=== PATIENT | female | born 1965 | race Hispanic/Latino ===

== ENCOUNTER 2020-02-15 23:28 | Inpatient (IN) | payer SELFPAY ==
[~2020-02-15] VITALS: Ht 149.9 cm; Wt 67.6 kg
[2020-02-16 01:34] LABS: BASOPHILS % 0.3 % (0.0-1.0); HEMATOCRIT 34.2 % (34.2-44.1); HEMOGLOBIN 11.9 g/dL (12.0-16.0); LYMPHOCYTES # (AUTO) 0.8 (1.0-3.2); LYMPHOCYTES % 11.4 % (18.0-39.1); MEAN CORPUSCULAR HEMOGLOBIN 28.5 pg (28-32); MEAN CORPUSCULAR HGB CONC 34.8 g/dL (31-35); MONOCYTES # (AUTO) 0.2 (0.2-0.8); MONOCYTES % 2.6 % (4.4-11.3); NEUTROPHILS # (AUTO) 6.1 (2.1-6.9); NEUTROPHILS % 85.3 % (38.7-80.0); PLATELET COUNT 192 x10e3/uL (140-360); RED BLOOD COUNT 4.17 x10e6/uL (3.6-5.1); RED CELL DISTRIBUTION WIDTH 11.7 % (11.7-14.4)
[2020-02-16 01:50] LABS: CLARITY,URINE CLOUDY (CLEAR); COLOR,URINE YELLOW (YELLOW); KETONES,URINE 1+ (NEGATIVE); LEUKOCYTE ESTERASE ,URINE NEGATIVE (NEGATIVE); NITRITE,URINE NEGATIVE (NEGATIVE)
[2020-02-16 01:51] LABS: BILIRUBIN,URINE NEGATIVE (NEGATIVE); PROTEIN,URINE DIPSTICK 2+ (NEGATIVE); URINE UROBILINOGEN 0.2 mg/dL (0.2 - 1)
[2020-02-16 01:55] LABS: ALBUMIN 3.3 g/dL (3.5-5.0); ALBUMIN/GLOBULIN RATIO 0.6 (0.8-2.0); ANION GAP 18.1 mmol/L (8-16); CALCIUM 9.3 mg/dL (8.4-10.2); CREATININE, SERUM 1.25 mg/dL (0.57-1.11); POTASSIUM 4.1 mmol/L (3.5-5.1)
[2020-02-16] MEDS ORDERED: ONDANSETRON HCL INJ 2MG/ML 2ML 2 MG/ML VIAL IV STA (02:06)
[2020-02-16 02:08] LABS: BACTERIA,URINE MODERATE /HPF; EPITHELIAL CELLS,URINE FEW /LPF; WBC,URINE (MAN) >50 /HPF (0-5)
[2020-02-16] MEDS ORDERED: INSULIN REGULAR, HUMAN 100 UNIT/1 ML 3ML VIAL IV ONE (02:15)
[2020-02-16] MEDS ORDERED: SODIUM CHLORIDE 0.9% 1000ML 1,000 ML IV ONE (02:15)
[2020-02-16] MEDS ORDERED: INSULIN REGULAR, HUMAN 100 UNIT/1 ML 3ML VIAL SQ ONE (02:15)
--- NOTE | 2020-02-16 05:49 | Diagnostic Imaging Report ---
EXAMINATION: CHEST SINGLE (PORTABLE) INDICATION: Chest pain and shortness of breath COMPARISON: None FINDINGS: AP view TUBES and LINES: None. LUNGS: Ill-defined airspace opacities within both lungs, right greater than left. PLEURA: No pleural effusion or pneumothorax. HEART AND MEDIASTINUM: The cardiomediastinal silhouette is unremarkable. BONES AND SOFT TISSUES: No acute osseous lesion. Soft tissues are unremarkable. UPPER ABDOMEN: No free air under the diaphragm. IMPRESSION: Ill-defined pulmonary airspace disease. Consider viral pneumonia. Signed by: Tono Osorio MD on 02/16/2020 5:45 AM
[2020-02-16] MEDS ORDERED: ACETAMINOPHEN 325 MG TAB ONE (06:49)
[2020-02-16] MEDS ORDERED: ACETAMINOPHEN 325 MG TAB PO ONE ×2 (07:00→20:15)
[2020-02-16] MEDS ORDERED: ONDANSETRON HCL INJ 2MG/ML 2ML 2 MG/ML VIAL IV PRN (20:00)
[2020-02-16] MEDS ORDERED: DEXTROSE 50% SYRINGE 50 ML IV PRN (20:00)
[2020-02-16] MEDS ORDERED: ACETAMINOPHEN 325 MG TAB PO PRN (20:00)
[2020-02-16] MEDS ORDERED: ALBUTEROL SULFATE HFA 8GM INHALATION AEROSOL INH PRN (20:15)
[2020-02-16 21:00] VITALS: BP 135/79
[2020-02-16] MEDS ORDERED: INSULIN GLARGINE 100 UNITS/ML VIAL SQ SCH (21:00)
--- NOTE | 2020-02-16 21:00 | NUR ---
patient is a new admit that arrived via wheel chair. patient is awake and talking. patient has a telemetry box. patient has been helped into the bed. bed is in the lowest position and call light is within reach. will continue to monitor patient.
[2020-02-16 21:11] VITALS: BP 135/79
[2020-02-16 21:14] VITALS: BP 135/79
[2020-02-16] MEDS ORDERED: CEFTRIAXONE SOD 1 GM/NS 50 ML 50 ML IV SCH (21:30)
[2020-02-16] MEDS: INSULIN REGULAR, HUMAN 100 UNIT/1 ML 3ML VIAL SQ SCH (21:50)
[2020-02-16] MEDS ORDERED: AZITHROMYCIN 500MG/NS 250 ML 250 ML IV SCH (22:00)
[2020-02-16] MEDS: SODIUM CHLORIDE 0.9% 1000ML 1,000 ML IV SCH (22:10)
[2020-02-16] MEDS ORDERED: METFORMIN HCL500 MG PO (22:55)
[2020-02-16] MEDS ORDERED: GLIPIZIDE ER2.5 MG PO (22:56)
[2020-02-17] VITALS: BP 119/71
--- NOTE | 2020-02-17 02:27 | Consultation ---
DATE OF CONSULTATION: Pulmonary Critical Care Consultation CHIEF COMPLAINT: Fever, malaise, and cough. HISTORY OF PRESENT ILLNESS: The patient is a 54-year-old woman with diabetes. She takes metformin at home. She has been sick for about 2 weeks with fevers and diarrhea. She has noted some nausea as well. She started having cough about 3 days ago. She does not have dyspnea. She came to the emergency department today and was found to have an elevated BUN and creatinine as well as an elevated blood sugar. She also had a positive COVID test. PAST SURGICAL HISTORY: Cholecystectomy. PAST MEDICAL HISTORY: 1. Diabetes. 2. No prior history of asthma or lung disease. 3. No prior history of heart disease. SOCIAL HISTORY: The patient is not a smoker or drinker. FAMILY HISTORY: Noncontributory. REVIEW OF SYSTEMS: Fever and malaise for about 2 weeks. Headache. She notes some cough for 3 days. She has no dyspnea. She has no chest pain. She is not having any abdominal pain. She did have some diarrhea and vomiting. PHYSICAL EXAMINATION: VITAL SIGNS: The patient is afebrile, blood pressure is 121/59, saturation is 97%, and pulse is 93. HEENT: Shows no facial swelling or erythema. CARDIAC: Reveals regular rate and rhythm with normal S1 and S2. LUNGS: Auscultation of lungs reveals rhonchorous breath sounds bilaterally. There is no wheezing. ABDOMEN: Soft and nontender. There is no rebound or guarding. EXTREMITIES: Show no leg edema or calf tenderness. There is no cyanosis or clubbing. SKIN: Shows no rashes. RADIOGRAPHIC DATA: Chest x-ray shows some ill-defined airspace disease consistent with viral pneumonia. LABORATORY DATA: BUN to creatinine ratio is 28 and 1.25 and glucose is 513. The anion gap was 18. Hemoglobin A1c was 12.3. White blood cell count is 7.2, hemoglobin is 11.9, and platelet count is 192. IMPRESSION: 1. Viral pneumonia and coronavirus disease 2019 infection. 2. Acute kidney injury. 3. Diabetes, out of control. PLAN: 1. The patient should have intravenous fluids due to her dehydration for hyperglycemia and diarrhea. 2. Insulin to control blood sugars. 3. Repeat laboratory values tomorrow. 4. Zithromax and Rocephin. 5. Hold dexamethasone at this time because of her hyperglycemia. 6. Tylenol as needed. MD JASSI Bach/FLAKITA /[id number]
[2020-02-17 04:00] VITALS: BP 140/81
[2020-02-17 05:40] LABS: ANION GAP 11.8 mmol/L (8-16); BLOOD UREA NITROGEN 19 mg/dL (7-26); BUN/CREATININE RATIO 26 (6-25); CALCIUM 8.2 mg/dL (8.4-10.2); CARBON DIOXIDE 25 mmol/L (22-29); CHLORIDE 106 mmol/L (98-107); CREATININE, SERUM 0.73 mg/dL (0.57-1.11); EST GLOMERULAR FILTRATION RATE > 60 ML/MIN (60-); GLUCOSE 237 mg/dL (74-118); POTASSIUM 3.8 mmol/L (3.5-5.1); SODIUM 139 mmol/L (136-145)
[2020-02-17 05:47] LABS: BASOPHILS % 0.2 % (0.0-1.0); EOSINOPHILS % 0.3 % (0.0-6.0); HEMATOCRIT 31.6 % (34.2-44.1); HEMOGLOBIN 10.7 g/dL (12.0-16.0); LYMPHOCYTES # (AUTO) 1.7 (1.0-3.2); LYMPHOCYTES % 28.2 % (18.0-39.1); MEAN CORPUSCULAR HEMOGLOBIN 28.7 pg (28-32); MEAN CORPUSCULAR HGB CONC 33.9 g/dL (31-35); MEAN CORPUSCULAR VOLUME 84.7 fL (81-99); MONOCYTES # (AUTO) 0.3 (0.2-0.8); NEUTROPHILS % 65.5 % (38.7-80.0); PLATELET COUNT 179 x10e3/uL (140-360); RED BLOOD COUNT 3.73 x10e6/uL (3.6-5.1); RED CELL DISTRIBUTION WIDTH 11.6 % (11.7-14.4)
--- NOTE | 2020-02-17 06:51 | NUR ---
patient is resting in the bed. bed is in lowest position and call light is within reach.
[2020-02-17] MEDS: INSULIN REGULAR, HUMAN 100 UNIT/1 ML 3ML VIAL SQ SCH ×3 (07:30→16:30)
[2020-02-17] MEDS ORDERED: GUAIFENESIN/CODEINE 10 ML CUP PO PRN (08:15)
--- NOTE | 2020-02-17 08:18 | NUR ---
GAVE PACKET OF INFORMATION WITH COMMUNITY [facility] FOR ASSISTANCE WITH LOW TO NO INCOME TO PATIENT. RESOURCES THAT PATIENT MAY BE ABLE TO FOLLOW UP UPON DISCHARGE. PT EDUCATED ON EACH RESOURCE AND UNDERSTANDING HOW TO FOLLOW UP TO SEE IF QUALIFIED FOR EACH RESOURCE.
[2020-02-17 08:31] VITALS: BP 130/74
[2020-02-17 08:33] VITALS: BP 130/74
[2020-02-17] MEDS ORDERED: ZINC SULFATE 220 MG CAP PO SCH (09:00)
[2020-02-17] MEDS ORDERED: ASCORBIC ACID 500 MG TAB PO SCH (09:00)
--- NOTE | 2020-02-17 09:14 | NUR ---
Per Dr.Hamer Mckoy "patient cleared to discharge from pulmonology standpoint."
--- NOTE | 2020-02-17 09:27 | Progress Note ---
DATE: SUBJECTIVE: The patient received intravenous fluids yesterday. She feels better and her creatinine has improved. She complains of some cough as well as some tightness in the chest with coughing. She is not having fevers. PHYSICAL EXAMINATION: VITAL SIGNS: The blood pressure is 140/81, saturation is 96%, pulse is 80, and respiratory rate is 18. HEENT: Shows no facial swelling or erythema. CARDIAC: Reveals regular rate and rhythm with normal S1 and S2. LUNGS: Auscultation of lungs reveals clear breath sounds bilaterally. There is no wheezing. ABDOMEN: Soft and nontender. There is no rebound or guarding. EXTREMITIES: Shows no leg edema or calf tenderness. There is no cyanosis or clubbing. SKIN: Shows no rashes. LABORATORY DATA: White blood cell count is 6.03 and hemoglobin is 10.7, and the platelet count is 197. The BUN to creatinine ratio is 19 to 0.73, and the blood sugar is 237. IMPRESSION: 1. Viral pneumonia and COVID-19 infection. 2. Acute kidney injury. 3. Diabetes, out of control. PLAN: 1. Continue inhaler as needed. 2. Guaifenesin with codeine for cough syrup. 3. Close attention to blood sugars. The patient will need better diabetic management as an outpatient given her elevated hemoglobin A1c of 12.8. 4. Dexamethasone is not indicated in this patient because she has been sick for 2 weeks and is not requiring oxygen. Also dexamethasone would worsen her blood sugars and make her diabetes more difficult to control. 5. The patient is not a candidate for remdesivir because she has been sick for 2 weeks. 6. Tentative discharge home after discussion with Dr. Delgadillo and Dr. Kyle. Raymond Dill MD LM/MODL /[id number]
[2020-02-17] MEDS: SODIUM CHLORIDE 0.9% 1000ML 1,000 ML IV SCH (09:59)
--- NOTE | 2020-02-17 10:00 | NUR ---
aware T 101.4 on 02/16/20 0625
[2020-02-17] MEDS ORDERED: FAMOTIDINE 20 MG/2 ML VIAL IV STA (11:33)
[2020-02-17 11:34] VITALS: BP 119/74
[2020-02-17] MEDS ORDERED: PROMETHAZINE 12.5MG/ NACL 0.9% 12.5 MG/50 ML BAG IV ONE (12:30)
[2020-02-17] MEDS ORDERED: PROMETHAZINE 25MG/ NS 50ML (IV) IV SCH (13:00)
--- NOTE | 2020-02-17 13:13 | NUR ---
infectious disease consultation patient is seen and examined and chart reviewed patient who originally came because she was not feeling well she has some cough with congestion patient came he was diagnosed with [place] at 19 she is not on oxygen she is a room air she was having some cough she was given cough medication with codeine for now she is complaining of nausea and stomach upset she says she does have problem wi th codeine before other than that she says she is doing well the patient when I saw her she was having nausea. This patient who is a healthy 52-year-old female who comes in with cough in the summer chest congestion but she says she is feeling well currently laying in bed comfortably she is willing to go home if she can but the nausea is bothering her at the present time her review of the systems all total negative. Her past medical history she does have diabetes mellitus Past surgical history she denies pain Social history there is no smoking drug abuse or abuse. Family history is otherwise noncontributory The patient received intravenous fluids yesterday. She feels better and her creatinine has improved. She complains of some cough as well as some tightness in the chest with coughing. She is not having fevers. PHYSICAL EXAMINATION: VITAL SIGNS: The blood pressure is 140/81, saturation is 96%, pulse is 80, and respiratory rate is 18. HEENT: Shows no facial swelling or erythema. CARDIAC: Reveals regular rate and rhythm with normal S1 and S2. LUNGS: Auscultation of lungs reveals clear breath sounds bilaterally. There is no wheezing. ABDOMEN: Soft and nontender. There is no rebound or guarding. EXTREMITIES: Shows no leg edema or calf tenderness. There is no cyanosis or clubbing. SKIN: Shows no rashes. LABORATORY DATA: White blood cell count is 6.03 and hemoglobin is 10.7, and the platelet count is 197. The BUN to creatinine ratio is 19 to 0.73, and the blood sugar is 237. IMPRESSION: 1. Viral pneumonia and COVID-19 infection.clinically stable minimum symptoms and still he could be discharged with no treatment 2. Acute kidney injury.recommend gentle hydration 3 nausea due med codeine will DC and give her Zofran as needed and Pepcid 3. Diabetes, out of control. continues order to control PLAN: 1. Continue inhaler as needed. 2.symptomatic management discussed with the patient 3. Close attention to blood sugars. The patient will need better diabetic management as an outpatient given her elevated hemoglobin A1c of 12.8. discussed with the patient no need for antibiotics no need for steroid patient is not hypoxemic 5. The patient is not a candidate for remdesivir patient is not hypoxemic
[2020-02-17] MEDS ORDERED: ENOXAPARIN SOD INJ 40 MG/0.4 ML SYR SC ONE (13:30)
[2020-02-17 15:39] VITALS: BP 109/64
[2020-02-17] MEDS ORDERED: ONDANSETRON HCL INJ 2MG/ML 2ML 2 MG/ML VIAL IV ONE (16:15)
--- NOTE | 2020-02-17 16:57 | NUR ---
Denies nausea. Nicki Farrell NP aware
--- NOTE | 2020-02-17 17:50 | NUR ---
Left AC IV discontinued. No signs of infiltration noted. 2x2 gauze and tape placed. Taken via wheelchair to personal car. AAOX4 to time, person,place, situation. Respirations even and unlabored. Denies nausea or vomiting Discharge instructions and all personal belongings taken with patient. No rx avaible.
--- NOTE | 2020-02-17 19:25 | History and Physical ---
PRIMARY CARE PHYSICIAN: Unknown. CHIEF COMPLAINT: Generalized weakness, shortness of breath, and cough. HISTORY OF PRESENT ILLNESS: This is a 54-year-old female with past medical history of diabetes, presented to the ER with complaints of malaise, cough, fever, shortness of breath for the past 8 days as well. She reports diarrhea has improved, but continued to feel weak, and presented to the ER for further evaluation. She was COVID-19 positive. She denies any chest pain, hemoptysis, nausea, vomiting, constipation. In the ER, she was noted to have actually hyponatremia at sodium of 134, creatinine 1.25, and blood glucose of 513, and chest x-ray showed ill-defined pulmonary air space disease due to likely viral pneumonia. She is admitted for further evaluation and management. PAST MEDICAL HISTORY: Diabetes. SURGICAL HISTORY: She reports: 1. Cholecystectomy. 2. x2. FAMILY MEDICAL HISTORY: Reports mother has diabetes. Father has high blood pressure. SOCIAL HISTORY: She denies any tobacco, alcohol, or illicit drug use. ALLERGIES: NO KNOWN ALLERGIES. REVIEW OF SYSTEMS: All systems reviewed and negative except as noted in HPI. PHYSICAL EXAMINATION: VITAL SIGNS: Temperature 98.7, pulse is 85, respirations 16, blood pressure 130/75, pulse ox is 96% on room air. GENERAL: No acute distress. HEENT: Normocephalic, atraumatic. NECK: Supple. LUNGS: Decreased breath sounds. CARDIOVASCULAR: Regular rate and rhythm. GI: Soft and nontender. NEUROLOGIC: Alert, awake, and oriented x3. MUSCULOSKELETAL: Moves all extremities. SKIN: Dry. PSYCH: Calm. LABORATORY DATA: WBC 6.03, hemoglobin 10.7, hematocrit 31.6, platelets 179. Sodium 139, potassium 3.8. BUN is 19, creatinine 0.73, estimated GFR greater than 60, glucose 237, hemoglobin A1c 12.8, calcium 8.2. AST 12, ALT 8. Urine cloudy, but negative for leukocyte esterase. COVID-19 positive. Chest x-ray, ill-defined pulmonary airspace disease. Consider viral pneumonia. IMPRESSION: 1. Viral pneumonia due to coronavirus disease 2019. Shortness of breath and cough are improved. Continue on azithromycin, Rocephin, and cough medicine for cough. ID and Pulmonary consulted. 2. Diabetes type 2 with hyperglycemia. Hemoglobin A1c 12.8. She is started on Lantus 15 units at bedtime and sliding scale insulin. 3. Dehydration with hyponatremia. Continue with IV fluid hydration, likely due to viral symptoms. 4. Acute kidney injury due to dehydration. Improving with IV fluid hydration. 5. Deep venous thrombosis prophylaxis. We will give Lovenox x1. PLAN: Plan is to continue supportive care. Symptoms have improved. Decadron will not be given due to hyperglycemia. We will discharge home later today if continues to improve. Dictated by CHAYO Hester Sandraching Shun Delgadillo MD MY/MODL /[id number]
--- NOTE | 2020-02-17 22:50 | Discharge Summary ---
PCP: Unknown. FINAL DISCHARGE DIAGNOSES: 1. Acute respiratory distress due to coronavirus disease 2019 viral pneumonia. 2. Diabetes type 2, hyperglycemia. 3. Dehydration with hyponatremia. 4. Acute kidney injury due to dehydration. CONSULTANTS: 1. Dr. Kyle with Infectious Disease. 2. Dr. Dill, sand mixer operator. PROCEDURES: None. HISTORY: Per HPI. HOSPITAL COURSE: This is a 54-year-old female with past medical history of diabetes, presented to the ER with complaints of generalized weakness, cough, fever, and shortness of breath for the past week. She tested positive for COVID-19 and was started on Rocephin, azithromycin, zinc sulfate, vitamin C, guaifenesin for cough. She was monitored overnight, she remained afebrile, an O2 saturation above 90 on room air. Chest x-ray with ill-defined pulmonary airspace disease due to viral pneumonia. She is cleared for discharge on current home medications, to follow up with Infectious Disease in 2 weeks for repeat COVID test. She is feeling better and wants to go home. PHYSICAL EXAMINATION: VITAL SIGNS: Temperature 98.1, pulse is 81, respirations 17, blood pressure 109/64, pulse ox is 97% on room air. GENERAL: No acute distress. HEENT: Normocephalic. CARDIOVASCULAR: Regular rate and rhythm. LUNGS: Decreased breath sounds. GI: Soft and nontender. NEUROLOGIC: Alert, awake, and oriented x3. CONDITION AT DISCHARGE: Improved and stable. DISCHARGE MEDICATIONS: Please see medication reconciliation list. FOLLOWUP: Follow up with PCP in 1 to [address] Kyle in 2 weeks for repeat COVID test. TIME SPENT: Total discharge time is 32 minutes. Dictated by CHAYO Hester Sandraching Shun Delgadillo MD MY/MODL /[id number]
== END 2020-02-17 17:55 | disposition home or self-care (01) | DRG 177 ==
LOC: ER 02-16 03:09 → ERHOLD 02-16 20:54 → IMCU 02-16 21:03
PROVIDERS: ADMIT Internal Medicine; ATTEND Internal Medicine
DX: U07.1 COVID-19 (principal); J12.89 Other viral pneumonia; J96.00 Acute respiratory failure, unspecified whether with hypoxia or hypercapnia; N17.9 Acute kidney failure, unspecified; E87.1 Hypo-osmolality and hyponatremia; E11.65 Type 2 diabetes mellitus with hyperglycemia; E86.0 Dehydration
CPT/HCPCS: 36415; 71045; 80048; 80053; 81001; 82948; 83036; 85025; 87635; 99284; J0456; J0696; J1650; J1815; J1817; J2405; J2550; J7030

== ENCOUNTER 2020-02-22 17:17 | Emergency (ER) | payer SELFPAY ==
[~2020-02-22] VITALS: Ht 149.9 cm; Wt 67.6 kg
[~2020-02-22 17:17] MED LIST: GLIPIZIDE ER2.5 MG PO; METFORMIN HCL500 MG PO
[2020-02-22] MEDS ORDERED: ONDANSETRON HCL INJ 2MG/ML 2ML 2 MG/ML VIAL IV STA (17:54)
[2020-02-22] MEDS ORDERED: SODIUM CHLORIDE 0.9% 1000ML 1,000 ML IV STA (17:54)
[2020-02-22 18:08] LABS: BASOPHILS % 0.6 % (0.0-1.0); EOSINOPHILS # (AUTO) 0.1 (0.0-0.4); EOSINOPHILS % 2.3 % (0.0-6.0); HEMATOCRIT 35.8 % (34.2-44.1); HEMOGLOBIN 12.3 g/dL (12.0-16.0); LYMPHOCYTES # (AUTO) 1.5 (1.0-3.2); LYMPHOCYTES % 29.6 % (18.0-39.1); MEAN CORPUSCULAR HEMOGLOBIN 28.4 pg (28-32); MEAN CORPUSCULAR HGB CONC 34.4 g/dL (31-35); MEAN CORPUSCULAR VOLUME 82.7 fL (81-99); MONOCYTES # (AUTO) 0.4 (0.2-0.8); MONOCYTES % 7.8 % (4.4-11.3); NEUTROPHILS % 58.1 % (38.7-80.0); PLATELET COUNT 325 x10e3/uL (140-360); RED BLOOD COUNT 4.33 x10e6/uL (3.6-5.1); RED CELL DISTRIBUTION WIDTH 11.4 % (11.7-14.4)
[2020-02-22 18:32] LABS: ALANINE AMINOTRANSFERASE 30 IU/L (0-55); ALBUMIN 3.3 g/dL (3.5-5.0); ALBUMIN/GLOBULIN RATIO 0.7 (0.8-2.0); ALKALINE PHOSPHATASE 92 IU/L (40-150); ANION GAP 16.8 mmol/L (8-16); BLOOD UREA NITROGEN 10 mg/dL (7-26); BUN/CREATININE RATIO 12 (6-25); CALCIUM 9.4 mg/dL (8.4-10.2); CARBON DIOXIDE 25 mmol/L (22-29); CHLORIDE 103 mmol/L (98-107); CREATINE KINASE 31 IU/L (29-168); CREATININE, SERUM 0.81 mg/dL (0.57-1.11); EST GLOMERULAR FILTRATION RATE > 60 ML/MIN (60-); GLUCOSE 185 mg/dL (74-118); POTASSIUM 3.8 mmol/L (3.5-5.1); SODIUM 141 mmol/L (136-145)
--- NOTE | 2020-02-22 18:42 | Diagnostic Imaging Report ---
EXAMINATION: CHEST SINGLE (PORTABLE) INDICATION: ^Y ^COVID COMPARISON: 02/16/2020 FINDINGS: AP view TUBES and LINES: None. LUNGS: Lungs are well inflated. Improved bilateral airspace opacities. Residual bilateral lower lung field airspace opacities are seen. PLEURA: No pleural effusion or pneumothorax. HEART AND MEDIASTINUM: The cardiomediastinal silhouette is unremarkable. BONES AND SOFT TISSUES: No acute osseous lesion. Soft tissues are unremarkable. UPPER ABDOMEN: No free air under the diaphragm. IMPRESSION: Residual bilateral lower lung field airspace opacities, overall improved when compared to prior x-ray. Signed by: Dr. Ambrocio Holguin MD on 02/22/2020 6:38 PM
[2020-02-22] MEDS ORDERED: ZOFRAN4 MG SL (19:04)
--- NOTE | 2020-02-22 19:11 | Emergency Department Note ---
History of Present Illnes History of Present Illness Chief Complaint: COVID PUI History of Present Illness This is a 54 year old female arrives to the ED with complaints of nausea and vomiting ever since she contracted Covid 19. Patient denies any shortness of breath or cough and states her otherwise rest her symptoms have improved. Chief Complaint Comment Pt arrived with c/o nausea and vomiting since 02/17/20. Reports being admitted for COVID here last week. States unable to keep any food down since discharged. Pt also reports diarrhea that has not stopped. Historian: Patient Arrival Mode: Car Onset (how long ago): day(s) Onset quality: gradual Duration (how long): day(s) Timing of current episode: intermittent Progression: unchanged Chronicity: new Context: Reports recent illness Past Medical/Family History Physician Review I have reviewed the patient's past medical and family history. Any updates have been documented here. Past Medical History Recent Fever: Yes Clinical Suspicion of Infectio: Yes New/Unexplained Change in Ment: No Past Medical History: Diabetes Past Surgical History: Cholecysctectomy, Social History Physically hurt or threatened: No Other Last Tetanus: UTD Review of Systems Review of Systems Constitutional: Reports no symptoms EENTM: Reports no symptoms Cardiovascular: Reports no symptoms Respiratory: Reports no symptoms Gastrointestinal: Reports as per HPI, Reports nausea, Reports vomiting Genitourinary: Reports no symptoms Musculoskeletal: Reports no symptoms Integumentary: Reports no symptoms Neurological: Reports no symptoms Psychological: Reports no symptoms Endocrine: Reports no symptoms Hematological/Lymphatic: Reports no symptoms Physical Exam Related Data Allergies: Coded Allergies: codeine (Verified Allergy, Unknown, Abdominal pain, 02/22/20) Robutussin with Codeine guaifenesin (Verified Allergy, Unknown, Abdominal pain, 02/22/20) Robutussin with Codeine Triage Vital Signs Vital Signs Date Time Temp Pulse Resp B/P (MAP) Pulse Ox O2 Delivery O2 Flow Rate FiO2 02/22/20 17:29 100.5 90 16 155/90 97 Room Air Vital signs reviewed: Yes Physical Exam CONSTITUTIONAL Constitutional: Present well-developed, Present well-nourished HENT HENT: Present normocephalic, Present atraumatic, Present oropharynx clear/cain st, Present nose normal HENT L/R: Present left ext ear normal, Present right ext ear normal EYES Eyes: Reports PERRL, Reports conjunctivae normal NECK Neck: Present ROM normal PULMONARY Pulmonary: Present effort normal, Present breath sounds normal CARDIOVASCULAR Cardiovascular: Present regular rhythm, Present heart sounds normal, Present capillary refill normal, Present normal rate GASTROINTESTINAL Abdominal: Present soft, Present nontender, Present bowel sounds normal GENITOURINARY Genitourinary: Present exam deferred SKIN Skin: Present warm, Present dry MUSCULOSKELETAL Musculoskeletal: Present ROM normal NEUROLOGICAL Neurological: Present alert, Present oriented x 3, Present no gross motor or sensory deficits PSYCHOLOGICAL Psychological: Present mood/affect normal, Present judgement normal Results Laboratory Result Diagram: 02/22/20 1753 02/22/20 1753 Laboratory Laboratory Tests Test 02/22/20 17:53 White Blood Count 5.14 x10e3/uL (4.8-10.8) Red Blood Count 4.33 x10e6/uL (3.6-5.1) Hemoglobin 12.3 g/dL (12.0-16.0) Hematocrit 35.8 % (34.2-44.1) Mean Corpuscular Volume 82.7 fL (81-99) Mean Corpuscular Hemoglobin 28.4 pg (28-32) Mean Corpuscular Hemoglobin Concent 34.4 g/dL (31-35) Red Cell Distribution Width 11.4 % (11.7-14.4) Platelet Count 325 x10e3/uL (140-360) Neutrophils (%) (Auto) 58.1 % (38.7-80.0) Lymphocytes (%) (Auto) 29.6 % (18.0-39.1) Monocytes (%) (Auto) 7.8 % (4.4-11.3) Eosinophils (%) (Auto) 2.3 % (0.0-6.0) Basophils (%) (Auto) 0.6 % (0.0-1.0) Neutrophils # (Auto) 3.0 (2.1-6.9) Lymphocytes # (Auto) 1.5 (1.0-3.2) Monocytes # (Auto) 0.4 (0.2-0.8) Eosinophils # (Auto) 0.1 (0.0-0.4) Basophils # (Auto) 0.0 (0.0-0.1) Absolute Immature Granulocyte (auto 0.08 x10e3/uL (0-0.1) Sodium Level 141 mmol/L (136-145) Potassium Level 3.8 mmol/L (3.5-5.1) Chloride Level 103 mmol/L (98-107) Carbon Dioxide Level 25 mmol/L (22-29) Anion Gap 16.8 mmol/L (8-16) Blood Urea Nitrogen 10 mg/dL (7-26) Creatinine 0.81 mg/dL (0.57-1.11) Estimat Glomerular Filtration Rate > 60 ML/MIN (60-) BUN/Creatinine Ratio 12 (6-25) Glucose Level 185 mg/dL (74-118) Calcium Level 9.4 mg/dL (8.4-10.2) Total Bilirubin 0.4 mg/dL (0.2-1.2) Aspartate Amino Transf (AST/SGOT) 25 IU/L (5-34) Alanine Aminotransferase (ALT/SGPT) 30 IU/L (0-55) Alkaline Phosphatase 92 IU/L (40-150) Creatine Kinase 31 IU/L (29-168) Creatine Kinase MB 0.50 ng/mL (0-5.0) Troponin I 0.001 ng/mL (0-0.300) Total Protein 8.1 g/dL (6.5-8.1) Albumin 3.3 g/dL (3.5-5.0) Globulin 4.8 g/dL (2.3-3.5) Albumin/Globulin Ratio 0.7 (0.8-2.0) Lipase 49 U/L (8-78) Lab results reviewed: Yes Imaging Imaging results reviewed: Yes Impressions IMPRESSION: Residual bilateral lower lung field airspace opacities, overall improved when compared to prior x-ray. Assessment & Plan Medical Decision Making MDM 54-year-old well-appearing female arrived to the ED with complaints of vomiting and diarrhea since her diagnosis of Covid 19. Patient well-appearing spoke at length about side effects related to covid 19, expressed understanding. Patient discharged home on rectal and oral antibiotics. Discussed case with Dr. Dill, no electrolyte abnormalities noted, patient stable for discharge home. Resolution of chest x-ray noted from prior. Assessment & Plan Final Impression: (1) COVID-19 Depart Disposition: HOME, SELF-CARE Last Vital Signs Date Time Temp Pulse Resp B/P (MAP) Pulse Ox O2 Delivery O2 Flow Rate FiO2 7/6/20 17:29 100.5 90 16 155/90 97 Room Air Home Meds Active Scripts Ondansetron Hcl* (ZOFRAN*) 4 Mg Tablet, 4 MG SL Q6H PRN for NAUSEA, #14 MG 0 Refills Prov:JENNIFER PACHECO DO 02/22/20 Reported Medications Glipizide (GLIPIZIDE ER) 2.5 Mg Tab.er.24, 1 TAB PO BID 02/16/20 Metformin Hcl (METFORMIN HCL) 500 Mg Tablet, 500 MG PO BID, #60 TAB 02/16/20 Medications in the ED Sodium Chloride 1,000 ml @ 0 mls/hr Q0M STAT IV ; Start 02/22/20 at 17:54; Stop 02/22/20 at 17:55 Ondansetron HCl 4 mg NOW STAT IV ; Start 02/22/20 at 17:54; Stop 02/22/20 at 17:55 JENNIFER PACHECO DO Feb 22, 2020 19:11
[2020-02-22 21:40] VITALS: BP 121/93
== END 2020-02-22 22:00 | disposition home or self-care (01) ==
LOC: ER 18:00
DX: U07.1 COVID-19 (principal); E11.65 Type 2 diabetes mellitus with hyperglycemia; R11.2 Nausea with vomiting, unspecified
CPT/HCPCS: 36415; 71045; 80053; 82550; 82553; 83690; 84484; 85025; 99283; J2405; J7030